=== PATIENT | female | born 1940 | race Caucasian/White ===

== ENCOUNTER → 2017-04-29 | Outpatient (CLI) | payer MEDICARE ==
[~2017-04-29] MED LIST: ASCO10007 PO; ASPI-496 PO; BIOT300T2 PO; CHOL200024 PO; CITA20TA5 PO; CYAN25009 PO; ESTR0.5T PO; LOSA50TA6 PO; MELA10TA PO; METO50TA82 PO; MULT-82 PO; OMEGA 3 FATTY ACID PO; OMEP-110 PO; SIMV20TA3 PO; UBID200C8 PO; VITA1TAB46 PO
[2017-04-29 12:34] LABS: BLOOD UREA NITROGEN 13 mg/dL (7-18)
[2017-04-29 12:38] LABS: ASPARTATE AMINO TRANSFERASE 15 U/L (15-37)
== END | disposition home or self-care (01) ==
LOC: STAR 11:33
PROVIDERS: ATTEND Internal Medicine
DX: Z01.818 Encounter for other preprocedural examination (principal); K63.5 Polyp of colon; K22.2 Esophageal obstruction
CPT/HCPCS: 36415; 80053; 93005

== ENCOUNTER 2017-05-14 07:33 | Day surgery (SDC) | payer MEDICARE ==
[~2017-05-14] VITALS: Ht 160 cm; Wt 49.5 kg
[2017-05-14] MEDS ORDERED: LACTATED RINGERS 1,000 ML IV SCH (08:38)
[2017-05-14 09:00] VITALS: BP 181/100
[2017-05-14] MEDS ORDERED: ONDANSETRON 2MG/ML, 2ML ONE (09:59)
[2017-05-14] MEDS ORDERED: DEXAMETHASONE 4 MG/ML, 1ML ONE (09:59)
[2017-05-14] MEDS ORDERED: PROPOFOL 10 MG/ML, 20ML ONE (09:59)
[2017-05-14] MEDS ORDERED: SUCCINYLCHOLINE 20 MG/ML, 10ML ONE (09:59)
[2017-05-14] MEDS ORDERED: ROCURONIUM 10 MG/ML ONE (09:59)
[2017-05-14] MEDS ORDERED: hydrALAzine 20 MG/ML, 1ML IV PRN (10:00)
[2017-05-14] MEDS ORDERED: LABETALOL 5MG/ML, 20ML IV PRN (10:00)
== END 2017-05-14 13:50 ==
LOC: OUT 07:33
PROVIDERS: ATTEND Internal Medicine
DX: D12.5 Benign neoplasm of sigmoid colon (principal); K20.9 Esophagitis, unspecified; K44.9 Diaphragmatic hernia without obstruction or gangrene; K22.2 Esophageal obstruction
CPT/HCPCS: 43235; 45381; 45385; 88304; J0330; J1100; J2405; J2704; J7120

== ENCOUNTER 2019-07-22 17:28 | Inpatient (IN) | payer MEDICARE ==
[~2019-07-22] VITALS: Ht 160 cm; Wt 47.5 kg
[~2019-07-22 17:28] MED LIST changes: +ASCO100019 PO; -ASCO10007 PO; -BIOT300T2 PO; +BIOT300T5 PO; -CITA20TA5 PO; +CITA20TA6 PO; +LOSA50TA14 PO; -LOSA50TA6 PO; +MULT-642 PO; -MULT-82 PO; +UBID200C35 PO; -UBID200C8 PO
--- NOTE | 2019-07-22 18:20 | NUR ---
BIB TO PT [facility] X 3 MO UNABLE TO GET TO [place] [facility] YESTER DAY CALLED OFFICE TO DAY TO RESCHED PHONE CALL INTURUPTED AND OFFICE CALLED TO PT A04 IS AWARE TO PROVIDE STOOL SAMPLE IF HAS THE OPPORTUNITY HUSBANDS CARD AT BS TO CALL ON DC
[2019-07-22 18:32] LABS: BASOPHILS # (AUTO) 0.03 x10^3/uL (0-0.1); BASOPHILS % (AUTO) 1 % (0-1); EOSINOPHILS # (AUTO) 0.02 x10^3/uL (0-0.4); EOSINOPHILS % (AUTO) 0 % (1-7); LYMPHOCYTES # (AUTO) 1.52 x10^3/uL (1-3.4); LYMPHOCYTES % (AUTO) 27 % (22-44); MD NO; MEAN CORPUSCULAR HEMOGLOBIN 33.4 pg (27.0-34.8); MEAN CORPUSCULAR HGB CONC 33.6 g/dL (32.4-35.8); MEAN CORPUSCULAR VOLUME 99.2 fL (80-100); MEAN PLATELET VOLUME 7.5 fL (7.4-10.4); MONOCYTES # (AUTO) 0.51 x10^3/uL (0.2-0.8); MONOCYTES % (AUTO) 9 % (2-9); NEUTROPHILS # (AUTO) 3.46 x10^3/uL (1.8-6.8); NEUTROPHILS % (AUTO) 63 % (42-75); PLATELET COUNT 307 x10^3/uL (130-400); RED BLOOD COUNT 4.75 x10^6/uL (3.82-5.3); RED CELL DISTRIBUTION WIDTH 12.8 % (9.6-15.2)
[2019-07-22 18:40] LABS: ALANINE AMINOTRANSFERASE 23 U/L (12-78); ALBUMIN 3.9 g/dL (3.4-5.0); CALCIUM 8.9 mg/dL (8.5-10.1); CHLORIDE 102 mmol/L (98-107)
[2019-07-22 18:43] LABS: ALKALINE PHOSPHATASE 70 U/L (45-117); TOTAL PROTEIN 7.1 g/dL (6.4-8.2)
[2019-07-22 18:48] LABS: ANION GAP 12 mmol/L (5-15)
--- NOTE | 2019-07-22 18:55 | NUR ---
REPORT RECIEVED FROM KONRAD THEODORE. CARE ASSUMED OF PATIENT.
--- NOTE | 2019-07-22 19:04 | NUR ---
NOTIFIED OF CRITICAL POTASSIUM
[2019-07-22] MEDS ORDERED: POTASSIUM CHLORIDE 20 MEQ TAB.ER.PRT PO ONE ×2 (19:30→23:30)
[2019-07-22] MEDS ORDERED: POTASSIUM CHLORIDE 20 MEQ TAB.ER.PRT ONE (19:48)
[2019-07-22] MEDS ORDERED: MAGNESIUM OXIDE 400 MG TABLET ONE ×2 (19:48→19:59)
[2019-07-22] MEDS ORDERED: MAGNESIUM OXIDE 400 MG TABLET PO ONE (20:00)
[2019-07-22 20:09] LABS: CLOSTRIDIUM DIFFICILE ANTIGEN NEGATIVE; CLOSTRIDIUM DIFFICILE TOXIN NEGATIVE (Negative)
[2019-07-22] MEDS ORDERED: NS + 20MEQ KCL 1,000 ML IV SCH (20:54)
[2019-07-22] MEDS ORDERED: AMLO-150 PO (20:57)
[2019-07-22] MEDS ORDERED: CLON0.5T11 PO (20:57)
[2019-07-22] MEDS ORDERED: UBID100C41 PO (20:57)
[2019-07-22] MEDS ORDERED: SERT25TA3 PO (20:58)
[2019-07-22] MEDS ORDERED: hydrALAzine 20 MG/ML, 1ML IVPush PRN (21:00)
[2019-07-22 21:30] VITALS: BP 148/91
[2019-07-22] MEDS ORDERED: MAGNESIUM SULFATE PMX 2GM/50ML 50 ML IV ONE (21:30)
[2019-07-22] MEDS: HEPARIN 5,000 UNITS/ML, 1ML SQ SCH (23:21)
[2019-07-23 03:30] VITALS: BP 146/84
[2019-07-23 04:48] LABS: BASOPHILS # (AUTO) 0.04 x10^3/uL (0-0.1); BASOPHILS % (AUTO) 1 % (0-1); EOSINOPHILS # (AUTO) 0.06 x10^3/uL (0-0.4); EOSINOPHILS % (AUTO) 1 % (1-7); LYMPHOCYTES # (AUTO) 1.48 x10^3/uL (1-3.4); LYMPHOCYTES % (AUTO) 28 % (22-44); MD NO; MEAN CORPUSCULAR HEMOGLOBIN 32.6 pg (27.0-34.8); MEAN CORPUSCULAR HGB CONC 33.8 g/dL (32.4-35.8); MEAN CORPUSCULAR VOLUME 96.5 fL (80-100); MEAN PLATELET VOLUME 7.3 fL (7.4-10.4); MONOCYTES # (AUTO) 0.63 x10^3/uL (0.2-0.8); MONOCYTES % (AUTO) 12 % (2-9); NEUTROPHILS # (AUTO) 2.99 x10^3/uL (1.8-6.8); NEUTROPHILS % (AUTO) 58 % (42-75); PLATELET COUNT 274 x10^3/uL (130-400); RED BLOOD COUNT 4.69 x10^6/uL (3.82-5.3); RED CELL DISTRIBUTION WIDTH 12.7 % (9.6-15.2)
[2019-07-23 05:01] LABS: ALBUMIN 3.8 g/dL (3.4-5.0); ANION GAP 7 mmol/L (5-15); CALCIUM 9.1 mg/dL (8.5-10.1); CHLORIDE 106 mmol/L (98-107)
[2019-07-23 05:06] LABS: ALANINE AMINOTRANSFERASE 25 U/L (12-78); ALKALINE PHOSPHATASE 64 U/L (45-117); BILIRUBIN,TOTAL 0.8 mg/dL (0.2-1.0); CREATININE 0.84 mg/dL (0.55-1.02); TOTAL PROTEIN 6.4 g/dL (6.4-8.2)
[2019-07-23] MEDS ORDERED: POTASSIUM CHLORIDE 20 MEQ TAB.ER.PRT PO ONE ×2 (07:00→14:30)
[2019-07-23] MEDS: MULTIVITAMIN 1 TABLET PO SCH (09:00)
[2019-07-23 09:03] VITALS: BP 160/93
[2019-07-23] MEDS: LOSARTAN 50MG TABLET PO SCH (09:10)
[2019-07-23] MEDS: AMLODIPINE 5 MG TABLET PO SCH (09:11)
[2019-07-23] MEDS: SERTRALINE 50MG TABLET PO SCH (09:13)
[2019-07-23] MEDS: CHOLECALCIFEROL 1,000 UNIT TABLET PO SCH (09:14)
[2019-07-23] MEDS: HEPARIN 5,000 UNITS/ML, 1ML SQ SCH ×2 (09:15→16:22)
[2019-07-23 14:20] VITALS: BP 127/83
[2019-07-23] MEDS: LOPERAMIDE 2 MG CAPSULE PO PRN ×2 (16:22→22:23)
[2019-07-23 19:52] VITALS: BP 164/98
[2019-07-23] MEDS ORDERED: NS + 20MEQ KCL 1,000 ML IV SCH (20:54)
[2019-07-24] MEDS: HEPARIN 5,000 UNITS/ML, 1ML SQ SCH ×3 (01:01→17:14)
[2019-07-24 01:18] VITALS: BP 147/84
[2019-07-24 06:11] LABS: ANION GAP 6 mmol/L (5-15); CALCIUM 8.7 mg/dL (8.5-10.1); CHLORIDE 112 mmol/L (98-107); CREATININE 0.84 mg/dL (0.55-1.02)
[2019-07-24 06:25] LABS: BASOPHILS # (AUTO) 0.03 x10^3/uL (0-0.1); BASOPHILS % (AUTO) 1 % (0-1); EOSINOPHILS # (AUTO) 0.07 x10^3/uL (0-0.4); EOSINOPHILS % (AUTO) 1 % (1-7); LYMPHOCYTES % (AUTO) 30 % (22-44); MD NO; MEAN CORPUSCULAR HEMOGLOBIN 32.7 pg (27.0-34.8); MEAN CORPUSCULAR HGB CONC 33.2 g/dL (32.4-35.8); MEAN CORPUSCULAR VOLUME 98.4 fL (80-100); MEAN PLATELET VOLUME 7.7 fL (7.4-10.4); MONOCYTES # (AUTO) 0.55 x10^3/uL (0.2-0.8); MONOCYTES % (AUTO) 11 % (2-9); NEUTROPHILS # (AUTO) 2.87 x10^3/uL (1.8-6.8); NEUTROPHILS % (AUTO) 57 % (42-75); PLATELET COUNT 279 x10^3/uL (130-400); RED BLOOD COUNT 4.51 x10^6/uL (3.82-5.3); RED CELL DISTRIBUTION WIDTH 13.1 % (9.6-15.2)
[2019-07-24 08:16] VITALS: BP 136/92
[2019-07-24] MEDS: CHOLECALCIFEROL 1,000 UNIT TABLET PO SCH (08:59)
[2019-07-24] MEDS: LOSARTAN 50MG TABLET PO SCH (09:00)
[2019-07-24] MEDS: SERTRALINE 50MG TABLET PO SCH (09:00)
[2019-07-24] MEDS: AMLODIPINE 5 MG TABLET PO SCH (09:01)
[2019-07-24] MEDS: POTASSIUM CHLORIDE 20 MEQ TAB.ER.PRT PO SCH (09:01)
[2019-07-24] MEDS: MULTIVITAMIN 1 TABLET PO SCH (09:01)
[2019-07-24] MEDS: LOPERAMIDE 2 MG CAPSULE PO PRN ×3 (12:02→21:33)
[2019-07-24 14:52] VITALS: BP 144/92
[2019-07-24 20:04] VITALS: BP 148/91
[2019-07-25] MEDS: HEPARIN 5,000 UNITS/ML, 1ML SQ SCH ×2 (01:03→08:17)
[2019-07-25 01:09] VITALS: BP 138/98
[2019-07-25 05:44] LABS: ANION GAP 5 mmol/L (5-15); CALCIUM 9.1 mg/dL (8.5-10.1); CHLORIDE 109 mmol/L (98-107); CREATININE 0.91 mg/dL (0.55-1.02)
[2019-07-25] MEDS: LOPERAMIDE 2 MG CAPSULE PO PRN (06:30)
[2019-07-25] MEDS ORDERED: MAGNESIUM SULFATE PMX 2GM/50ML 50 ML IV ONE (08:00)
[2019-07-25 08:02] VITALS: BP 117/80
[2019-07-25] MEDS: CHOLECALCIFEROL 1,000 UNIT TABLET PO SCH (08:18)
[2019-07-25] MEDS: MULTIVITAMIN 1 TABLET PO SCH (08:18)
[2019-07-25] MEDS: LOSARTAN 50MG TABLET PO SCH (08:19)
[2019-07-25] MEDS: AMLODIPINE 5 MG TABLET PO SCH (08:19)
[2019-07-25] MEDS: POTASSIUM CHLORIDE 20 MEQ TAB.ER.PRT PO SCH (08:19)
[2019-07-25] MEDS: SERTRALINE 50MG TABLET PO SCH (08:20)
[2019-07-25] MEDS ORDERED: LOPE2CAP PO (10:20)
[2019-07-25] MEDS ORDERED: POTA20TA6 PO (10:20)
== END 2019-07-25 12:48 | disposition home or self-care (01) | DRG 394 ==
LOC: ED 18:28 → EDIP 20:25 → 4NOR 21:57
PROVIDERS: ADMIT Family Medicine; ATTEND Family Medicine
DX: K52.1 Toxic gastroenteritis and colitis (principal); Z68.1 Body mass index [BMI] 19.9 or less, adult; E44.0 Moderate protein-calorie malnutrition; E83.42 Hypomagnesemia; E87.6 Hypokalemia; F32.9 Major depressive disorder, single episode, unspecified; F41.9 Anxiety disorder, unspecified; I10 Essential (primary) hypertension; I48.91 Unspecified atrial fibrillation; Z86.010 Personal history of colon polyps; Z90.710 Acquired absence of both cervix and uterus; Z79.899 Other long term (current) drug therapy; T47.1X5A Adverse effect of other antacids and anti-gastric-secretion drugs, initial encounter
CPT/HCPCS: 36415; 80048; 80053; 82438; 83735; 84100; 84302; 84999; 85025; 87015; 87206; 87324; 89055; 93005; 99285; G0378; J1644; J3480; J3475

== ENCOUNTER 2019-10-13 07:49 | Day surgery (SDC) | payer MEDICARE ==
[~2019-10-13] VITALS: Ht 160 cm; Wt 42.5 kg
[~2019-10-13 07:49] MED LIST changes: +AMLO-150 PO; +CLON0.5T11 PO; +LOPE2CAP PO; +PARO10TA56 PO; +POTA20TA6 PO; +POTASSIUM PO; +SERT25TA3 PO; +UBID100C41 PO
[2019-10-13 08:20] VITALS: BP 132/88
[2019-10-13] MEDS ORDERED: LACTATED RINGERS 1,000 ML IV SCH (08:22)
[2019-10-13] MEDS ORDERED: LIDOCAINE-MPF 1%, 2ML INFIL ONE (08:30)
[2019-10-13] MEDS ORDERED: PROPOFOL 10 MG/ML, 20ML ONE (10:00)
[2019-10-13] MEDS ORDERED: FENTANYL PF 100 MCG/2ML IV PRN (10:30)
[2019-10-13] MEDS ORDERED: EPHEDRINE 50 MG/ML, 1ML IM PRN (10:30)
[2019-10-13] MEDS ORDERED: MIDAZOLAM 1 MG/ML, 2ML IV PRN (10:30)
[2019-10-13] MEDS ORDERED: OXYcodone 5 MG/5 ML ORAL.SOL UDC PO PRN (10:30)
[2019-10-13] MEDS ORDERED: ONDANSETRON 2MG/ML, 2ML IV PRN (10:30)
[2019-10-13] MEDS ORDERED: ONDANSETRON ODT 8 MG PO PRN (10:30)
[2019-10-13] MEDS ORDERED: PROMETHAZINE 25 MG/ML, 1ML IV PRN (10:30)
[2019-10-13] MEDS ORDERED: EPHEDRINE 50 MG/ML, 1ML IVPush PRN (10:30)
== END 2019-10-13 13:15 | disposition home or self-care (01) ==
LOC: OUT 07:49
PROVIDERS: ATTEND Internal Medicine
DX: Z09 Encounter for follow-up examination after completed treatment for conditions other than malignant neoplasm (principal); D12.8 Benign neoplasm of rectum; D13.0 Benign neoplasm of esophagus; K20.9 Esophagitis, unspecified; K22.2 Esophageal obstruction; K44.9 Diaphragmatic hernia without obstruction or gangrene; I10 Essential (primary) hypertension; F32.9 Major depressive disorder, single episode, unspecified; F41.9 Anxiety disorder, unspecified; Z79.01 Long term (current) use of anticoagulants; Z86.010 Personal history of colon polyps
CPT/HCPCS: 43239; 43248; 45385; 88305; 88312; J2704; J7120

== ENCOUNTER 2020-01-11 22:38 | Observation (INO) | payer MEDICARE ==
[~2020-01-11] VITALS: Ht 152.4 cm; Wt 41.0 kg
[~2020-01-11 22:38] MED LIST changes: +CLON-364 PO; -CLON0.5T11 PO; +SIMV20TA19 PO; -SIMV20TA3 PO
[2020-01-11 23:25] LABS: BASOPHILS # (AUTO) 0.03 x10^3/uL (0-0.1); BASOPHILS % (AUTO) 0 % (0-1); EOSINOPHILS # (AUTO) 0.11 x10^3/uL (0-0.4); EOSINOPHILS % (AUTO) 2 % (1-7); LYMPHOCYTES % (AUTO) 25 % (22-44); MD NO; MEAN CORPUSCULAR HEMOGLOBIN 31.5 pg (27.0-34.8); MEAN CORPUSCULAR HGB CONC 33.7 g/dL (32.4-35.8); MEAN CORPUSCULAR VOLUME 93.4 fL (80-100); MEAN PLATELET VOLUME 7.1 fL (7.4-10.4); MONOCYTES # (AUTO) 0.53 x10^3/uL (0.2-0.8); MONOCYTES % (AUTO) 7 % (2-9); NEUTROPHILS # (AUTO) 4.89 x10^3/uL (1.8-6.8); NEUTROPHILS % (AUTO) 67 % (42-75); PLATELET COUNT 362 x10^3/uL (130-400); RED BLOOD COUNT 4.23 x10^6/uL (3.82-5.3)
[2020-01-11 23:38] LABS: ALBUMIN 3.9 g/dL (3.4-5.0); ANION GAP 9 mmol/L (5-15); CALCIUM 9.5 mg/dL (8.5-10.1); CHLORIDE 102 mmol/L (98-107); CREATININE 0.94 mg/dL (0.55-1.02)
[2020-01-11 23:41] LABS: TROPONIN I < 0.015 ng/mL (0.000-0.045)
[2020-01-12] MEDS ORDERED: ASPIRIN 81 MG TABLET CHEW PO ONE
[2020-01-12] MEDS ORDERED: OXYcodone IR 5MG TABLET PO PRN (00:30)
[2020-01-12] MEDS ORDERED: DOCUSATE 100 MG CAPSULE PO PRN (00:30)
[2020-01-12] MEDS ORDERED: BISACODYL 10 MG SUPP PR PRN (00:30)
[2020-01-12] MEDS ORDERED: ACETAMINOPHEN 325 MG TABLET PO PRN (00:30)
[2020-01-12] MEDS ORDERED: POLYETHYLENE GLYCOL 17 GM PACKET PO PRN (00:30)
[2020-01-12] MEDS ORDERED: PROMETHAZINE 25 MG/ML, 1ML IM PRN (00:30)
[2020-01-12] MEDS ORDERED: ONDANSETRON 2MG/ML, 2ML IVPush PRN (00:30)
[2020-01-12] MEDS ORDERED: morphine SULFATE 10 MG/ML, 1ML IVPush PRN (00:30)
[2020-01-12] MEDS ORDERED: hydrALAzine 20 MG/ML, 1ML IVPush PRN (00:30)
[2020-01-12] MEDS ORDERED: ONDANSETRON ODT 4 MG PO PRN (00:30)
[2020-01-12] MEDS ORDERED: NITROGLYCERIN 0.4 MG BOTTLE (25 TABS) SL PRN (00:30)
[2020-01-12] MEDS: SODIUM CHLORIDE 0.9% 1,000 ML IV SCH ×2 (00:49→11:12)
[2020-01-12] MEDS: HEPARIN 5,000 UNITS/ML, 1ML SQ SCH ×3 (00:50→16:30)
[2020-01-12 00:51] VITALS: BP 160/78
[2020-01-12] MEDS ORDERED: PAROXETINE 10 MG TABLET PO SCH (01:00)
[2020-01-12] MEDS ORDERED: POTASSIUM CHLORIDE 20 MEQ TAB.ER.PRT PO ONE ×2 (01:00)
[2020-01-12 03:14] LABS: FREE T4 (FREE THYROXINE) 1.34 ng/dL (0.76-1.46)
[2020-01-12 04:02] LABS: ALANINE AMINOTRANSFERASE 17 U/L (12-78); ALBUMIN 3.9 g/dL (3.4-5.0); ANION GAP 7 mmol/L (5-15); CALCIUM 9.4 mg/dL (8.5-10.1); CHLORIDE 104 mmol/L (98-107); CHOLESTEROL, TOTAL 318 mg/dL (140-239); CREATININE 0.93 mg/dL (0.55-1.02)
[2020-01-12 04:06] LABS: ALKALINE PHOSPHATASE 57 U/L (45-117); BILIRUBIN,TOTAL 0.4 mg/dL (0.2-1.0); CHOL/HDL RATIO 3.6; HDL CHOL % 28 % (28-40); HDL CHOLESTEROL (DIRECT) 88 mg/dL (40-60); LDL CHOLESTEROL,CALCULATED 200 mg/dL (54-169); LDL/HDL RATIO 2.3 (0.5-3.0); TOTAL PROTEIN 7.5 g/dL (6.4-8.2); TRIGLYCERIDES 151 mg/dL (50-200); TROPONIN I < 0.015 ng/mL (0.000-0.045); VLDL CHOLESTEROL 30 mg/dL (0-25)
[2020-01-12] MEDS ORDERED: ASPIRIN 325 MG TABLET EC PO SCH (06:00)
[2020-01-12 06:43] LABS: MICROSCOPIC NOT IND
[2020-01-12 06:44] LABS: CULTURE INDICATED? NO
[2020-01-12 07:55] VITALS: BP 134/79
[2020-01-12] MEDS ORDERED: MAGNESIUM SULFATE PMX 2GM/50ML 50 ML IV ONE (08:00)
[2020-01-12] MEDS ORDERED: POTASSIUM CHLORIDE 20 MEQ TAB.ER.PRT PO SCH (08:00)
[2020-01-12 08:03] LABS: BASOPHILS # (AUTO) 0.06 x10^3/uL (0-0.1); BASOPHILS % (AUTO) 1 % (0-1); EOSINOPHILS # (AUTO) 0.19 x10^3/uL (0-0.4); EOSINOPHILS % (AUTO) 2 % (1-7); LYMPHOCYTES # (AUTO) 2.13 x10^3/uL (1-3.4); LYMPHOCYTES % (AUTO) 24 % (22-44); MD NO; MEAN CORPUSCULAR HEMOGLOBIN 31.3 pg (27.0-34.8); MEAN CORPUSCULAR HGB CONC 32.8 g/dL (32.4-35.8); MEAN CORPUSCULAR VOLUME 95.3 fL (80-100); MEAN PLATELET VOLUME 7.3 fL (7.4-10.4); MONOCYTES # (AUTO) 0.72 x10^3/uL (0.2-0.8); MONOCYTES % (AUTO) 8 % (2-9); NEUTROPHILS # (AUTO) 5.75 x10^3/uL (1.8-6.8); NEUTROPHILS % (AUTO) 65 % (42-75); PLATELET COUNT 412 x10^3/uL (130-400); RED BLOOD COUNT 4.21 x10^6/uL (3.82-5.3); RED CELL DISTRIBUTION WIDTH 13.4 % (9.6-15.2)
[2020-01-12] MEDS ORDERED: LOSARTAN 50MG TABLET PO SCH (09:00)
[2020-01-12] MEDS ORDERED: TEMPLATE NON-FORMULARY MED. (Ubidecarenone** (Co Q-10**) 100 MG) PO SCH (09:00)
[2020-01-12] MEDS ORDERED: MULTIVITAMIN 1 TABLET PO SCH (09:00)
[2020-01-12] MEDS ORDERED: OMEPRAZOLE 20 MG CAPSULE.DR PO SCH (09:00)
[2020-01-12] MEDS ORDERED: CHOLECALCIFEROL 1,000 UNIT TABLET PO SCH (09:00)
[2020-01-12] MEDS ORDERED: ASCORBIC ACID 500 MG TABLET PO SCH (09:00)
[2020-01-12] MEDS ORDERED: MULTIVITS,STRESS FORMULA 1 TABLET PO SCH (09:00)
[2020-01-12] MEDS ORDERED: PANTOPRAZOLE 40 MG IV ONE (10:52)
[2020-01-12] MEDS: POTASSIUM CHLORIDE 20 MEQ PACKET PO SCH ×2 (10:58→17:00)
[2020-01-12] MEDS ORDERED: PANTOPRAZOLE 40 MG IV IVPush SCH (11:00)
[2020-01-12 14:30] VITALS: BP 147/88
[2020-01-12] MEDS ORDERED: ASPI-515 PO (17:01)
[2020-01-12] MEDS ORDERED: POTA20PA25 PO (17:01)
[2020-01-12] MEDS ORDERED: ATOR20TA37 PO (17:01)
== END 2020-01-12 19:12 | disposition home or self-care (01) ==
LOC: ED 01-12 00:20 → INTOOBSV 01-12 00:42 → EDIP 01-12 00:42 → 5SO 01-12 00:44
PROVIDERS: ADMIT Internal Medicine; ATTEND Internal Medicine
DX: R07.89 Other chest pain (principal); E87.6 Hypokalemia; I10 Essential (primary) hypertension; K22.2 Esophageal obstruction; F41.8 Other specified anxiety disorders; K52.9 Noninfective gastroenteritis and colitis, unspecified; R00.2 Palpitations; R06.00 Dyspnea, unspecified; R06.02 Shortness of breath; I48.91 Unspecified atrial fibrillation; E78.5 Hyperlipidemia, unspecified; Z87.19 Personal history of other diseases of the digestive system; Z79.899 Other long term (current) drug therapy; Z90.710 Acquired absence of both cervix and uterus; Z87.891 Personal history of nicotine dependence
CPT/HCPCS: 36415; 71045; 80048; 80053; 80061; 81003; 82040; 83036; 83735; 84439; 84443; 84484; 85025; 85379; 93005; 93306; 96361; 96365; 96366; 96372; 96375; C9113; G0378; J1644; J3475; J7030

== ENCOUNTER 2020-01-31 17:52 | Emergency (ER) | payer MEDICARE ==
[~2020-01-31] VITALS: Ht 160 cm; Wt 39.4 kg
[~2020-01-31 17:52] MED LIST changes: +ASPI-515 PO; +ATOR20TA37 PO; +POTA20PA25 PO
[2020-01-31 17:57] VITALS: BP 148/88
[2020-01-31] MEDS ORDERED: LORazepam 1MG TABLET PO ONE (18:30)
[2020-01-31] MEDS ORDERED: LORazepam 1MG TABLET ONE (18:37)
== END 2020-01-31 20:02 | disposition home or self-care (01) ==
LOC: ED 20:00
DX: F41.1 Generalized anxiety disorder (principal); R06.4 Hyperventilation; I48.91 Unspecified atrial fibrillation; I10 Essential (primary) hypertension
CPT/HCPCS: 71046; 93005; 99283

== ENCOUNTER → 2020-08-17 | Outpatient (CLI) | payer MEDICARE ==
[~2020-08-17] MED LIST changes: +OMNIPAQUE 350 MG/ML, 75ML BOTTLE ONE
[2020-08-17 15:22] LABS: MICROSCOPIC NOT IND
[2020-08-17 15:26] LABS: ALBUMIN 4.1 g/dL (3.4-5.0); ANION GAP 7 mmol/L (5-15); CALCIUM 9.2 mg/dL (8.5-10.1); CHLORIDE 100 mmol/L (98-107)
[2020-08-17 15:29] LABS: ALANINE AMINOTRANSFERASE 19 U/L (12-78); ALKALINE PHOSPHATASE 61 U/L (45-117); BILIRUBIN,TOTAL 0.3 mg/dL (0.2-1.0); CREATININE 1.15 mg/dL (0.55-1.02); TOTAL PROTEIN 7.9 g/dL (6.4-8.2)
[2020-08-17 15:34] LABS: BASOPHILS # (AUTO) 0.07 x10^3/uL (0-0.1); BASOPHILS % (AUTO) 1 % (0-1); EOSINOPHILS # (AUTO) 0.01 x10^3/uL (0-0.4); EOSINOPHILS % (AUTO) 0 % (1-7); LYMPHOCYTES % (AUTO) 16 % (22-44); MD NO; MEAN CORPUSCULAR HEMOGLOBIN 30.6 pg (27.0-34.8); MEAN CORPUSCULAR HGB CONC 32.5 g/dL (32.4-35.8); MEAN CORPUSCULAR VOLUME 94.2 fL (80-100); MEAN PLATELET VOLUME 7.1 fL (7.4-10.4); MONOCYTES # (AUTO) 0.71 x10^3/uL (0.2-0.8); MONOCYTES % (AUTO) 8 % (2-9); NEUTROPHILS # (AUTO) 6.44 x10^3/uL (1.8-6.8); NEUTROPHILS % (AUTO) 75 % (42-75); PLATELET COUNT 388 x10^3/uL (130-400); RED BLOOD COUNT 4.52 x10^6/uL (3.82-5.3); RED CELL DISTRIBUTION WIDTH 12.9 % (9.6-15.2)
== END | disposition home or self-care (01) ==
LOC: CFH 13:02
PROVIDERS: ATTEND Nurse Practitioner
DX: G31.9 Degenerative disease of nervous system, unspecified (principal); I10 Essential (primary) hypertension; E87.6 Hypokalemia; R35.0 Frequency of micturition; R63.4 Abnormal weight loss
CPT/HCPCS: 36415; 70470; 80053; 81003; 82565; 83735; 85025; Q9967